=== PATIENT | female | born 2000 | race Caucasian/White ===

== ENCOUNTER 2021-01-17 23:56 | Emergency (ER) | payer SELFPAY ==
[~2021-01-17] VITALS: Ht 172.7 cm; Wt 61.2 kg
[2021-01-17 23:56] VITALS: BP 127/90
--- NOTE | 2021-01-18 00:45 | NUR ---
Patient discharged to home in stable condition. Written and verbal after care instructions given. Patient verbalizes understanding of instruction.
--- NOTE | 2021-01-18 00:52 | NUR ---
PATIENT STATES THAT SHE WILL FOLLOW UP WITH PRIMARY CARE DOCTOR.
== END 2021-01-18 02:33 | disposition home or self-care (01) ==
LOC: ER 23:59
DX: R06.00 Dyspnea, unspecified (principal)
CPT/HCPCS: 71045-TC